=== PATIENT | female | born 1970 | race Caucasian/White ===

== ENCOUNTER 2017-02-22 08:57 | Outpatient (CLI) | payer BC ==
--- NOTE | 2017-02-22 13:17 | XRAY Report ---
DATE OF SERVICE: 02/22/2017 EXAM: THREE VIEW LEFT KNEE 02/22/2017 CLINICAL INDICATION: Pain. FINDINGS: AP, lateral, sunrise views of the left knee demonstrate no evidence of fracture or disloca tion. The joint spaces are preserved. No radiopaque foreign body is seen in the soft tissues. IMPRESSION: NORMAL LEFT KNEE. TD: 02/22/2017 13:47
== END 2017-02-22 08:58 | disposition home or self-care (01) ==
LOC: DI.S 08:57
PROVIDERS: ATTEND Physician Assistant
DX: M25.562 Pain in left knee (principal)

== ENCOUNTER 2017-12-25 04:20 | Emergency (ER) | payer BC ==
[2017-12-25] MEDS ORDERED: SODIUM CHLORIDE 0.9% 1,000 ML IV ONE (04:41)
[2017-12-25] MEDS ORDERED: ONDANSETRON ODT 4 MG TABLET TL STA (04:41)
--- NOTE | 2017-12-25 04:44 | ED Physician Documentation ---
PD HPI NVD - Stated complaint Stated Complaint: VOMITING,ABDOMINAL PAIN - Chief complaint Chief Complaint: Abd Pain - History obtained from History obtained from: Patient, Family - History of Present Illness Timing - onset: Enter time (0), Last night Timing - duration: Hours Timing - details: Abrupt onset, Still present Associated symptoms: Abdominal pain Contributing factors: Bad food (had potato salad at 4pm) Improved by: Vomiting Similar symptoms before: Has not had sx before Recently seen: Not recently seen - Additonal information Additional information: Previously well 47-year-old female has developed acute epigastric pain and vomiting beginning about 2199 last night. She states that she last ate potato salad about 4 PM and was well in between that time. She states this is never happened to her previously and she denies any use of alcohol and she states that she has not used ibuprofen or Aleve for more than 1 month. No one else ate the same thing that she did. Review of Systems Constitutional: denies: Fever Eyes: denies: Decreased vision Ears: denies: Ear pain Nose: denies: Congestion Throat: denies: Sore throat Cardiac: denies: Chest pain / pressure, Palpitations Respiratory: denies: Dyspnea, Cough GI: reports: Abdominal Pain, Nausea, Vomiting : denies: Dysuria, Frequency PD PAST MEDICAL HISTORY - Present Medications Home Medications: Ambulatory Orders Medication Instructions Recorded Confirmed Promethazine [Phenergan] 25 - 50 mg PO Q6H PRN #10 tab 12/25/17 - Allergies Allergies/Adverse Reactions: Allergies Allergy/AdvReac Type Severity Reaction Status Date / Time Sulfa (Sulfonamide Allergy Hives Verified 12/25/17 04:32 Antibiotics) PD ED PE NORMAL - Vitals Vital signs reviewed: Yes - General General: Alert and oriented X 3, Well developed/nourished, Other (47 y/o female appears very uncomfortable ) - HEENT HEENT: Atraumatic, PERRL, EOMI - Neck Neck: Supple, no meningeal sign, No bony TTP - Cardiac Cardiac: RRR, No murmur - Respiratory Respiratory: No respiratory distress, Clear bilaterally - Abdomen Abdomen: Soft, Other (epigastric tenderness is present without garding or rebound tenderness. 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, No motor deficit, No sensory deficit, Normal speech Eye Opening: Spontaneous Motor: Obeys Commands Verbal: Oriented GCS Score: 15 - Psych Psych: Normal mood, Normal affect Results - Vitals Vitals: Vital Signs - 24 hr 12/25/17 12/25/17 12/25/17 04:25 06:34 07:09 Temperature 35.9 C L 35.9 C L Heart Rate 86 64 Respiratory 26 H 16 Rate Blood Pressure 125/74 120/74 O2 Saturation 99 99 Oxygen O2 Source Room air - Labs Labs: Laboratory Tests 12/25/17 12/25/17 12/25/17 04:49 04:49 04:49 WBC 15.5 H RBC 4.19 L Hgb 13.5 Hct 40.2 MCV 95.9 MCH 32.3 H MCHC 33.7 RDW 12.8 Plt Count 362 MPV 7.3 L Neut # (Auto) 14.3 H Lymph # (Auto) 0.5 L [place] # (Auto) 0.6 Eos # (Auto) 0.0 Baso # (Auto) 0.1 Absolute Nucleated RBC 0.01 Nucleated RBC % 0.1 Sodium 137 Potassium 3.4 L Chloride 102 Carbon Dioxide 19 L Anion Gap 16.0 H BUN 15 Creatinine 0.9 Estimated GFR (MDRD) 68 L Glucose 150 H Calcium 9.9 Total Bilirubin 0.7 AST 23 ALT 17 Alkaline Phosphatase 110 Troponin I < 0.04 Total Protein 8.1 Albumin 4.6 Globulin 3.5 Albumin/Globulin Ratio 1.3 Lipase 23 Urine Color Urine Clarity Urine pH Ur Specific [place] Urine Protein Urine Glucose (UA) Urine Ketones Urine Occult Blood Urine Nitrite Urine Bilirubin Urine Urobilinogen Ur Leukocyte Esterase Urine RBC Urine WBC Ur Squamous Epith Cells Urine Bacteria Ur Microscopic Review Urine Culture Comments Urine HCG, Qual 12/25/17 12/25/17 05:41 05:41 WBC RBC Hgb Hct MCV MCH MCHC RDW Plt Count MPV Neut # (Auto) Lymph # (Auto) [place] # (Auto) Eos # (Auto) Baso # (Auto) Absolute Nucleated RBC Nucleated RBC % Sodium Potassium Chloride Carbon Dioxide Anion Gap BUN Creatinine Estimated GFR (MDRD) Glucose Calcium Total Bilirubin AST ALT Alkaline Phosphatase Troponin I Total Protein Albumin Globulin Albumin/Globulin Ratio Lipase Urine Color YELLOW Urine Clarity HAZY Urine pH 8.5 H Ur Specific [place] 1.020 1.020 Urine Protein NEGATIVE Urine Glucose (UA) NEGATIVE Urine Ketones >=80 H Urine Occult Blood LARGE H Urine Nitrite NEGATIVE Urine Bilirubin NEGATIVE Urine Urobilinogen 0.2 (NORMAL) Ur Leukocyte Esterase SMALL H Urine RBC 6-10 H Urine WBC 6-10 H Ur Squamous Epith Cells MOD Squamous H Urine Bacteria Moderate H Ur Microscopic Review INDICATED Urine Culture Comments NOT INDICATED Urine HCG, Qual NEGATIVE PD MEDICAL DECISION MAKING - ED course Complexity details: reviewed old records, reviewed results, re-evaluated patient, considered differential, d/w patient, d/w family ED course: 47-year-old female with acute nausea and vomiting is administered intravenous saline and Zofran does not have much improvement with use of Zofran is administered Phenergan intravenously. She feels improved at the time of discharge. I suspect food poisoning the most likely explanation. Departure - Departure Disposition: 01 Home, Self Care Clinical Impression: Gastroenteritis Instructions: ED Gastroenteritis Vs Food Poison Follow-Up: Chika Llamas PA [Primary Care Provider] - Prescriptions: Promethazine [Phenergan] 25 - 50 mg PO Q6H PRN #10 tab PRN Reason: Nausea / Vomiting Discharge Date/Time: 12/25/17 07:15
[2017-12-25] MEDS ORDERED: ONDANSETRON 4 MG/2 ML VIAL IVP STA (04:59)
[2017-12-25 05:02] LABS: BASOPHILS # (AUTO) 0.1 10^3/uL (0.0-0.1); BASOPHILS % (AUTO) 0.6 %; HGB - HEMOGLOBIN 13.5 g/dL (12.0-16.0); LYMPHOCYTES # (AUTO) 0.5 10^3/uL (1.5-3.5); LYMPHOCYTES % (AUTO) 3.4 %; MEAN CORPUSCULAR HEMOGLOBIN 32.3 pg (27.0-31.0); MEAN CORPUSCULAR HGB CONC 33.7 g/dL (32.0-36.0); MEAN CORPUSCULAR VOLUME 95.9 fL (81.0-99.0); MEAN PLATELET VOLUME 7.3 fL (7.9-10.8); MONOCYTES # (AUTO) 0.6 10^3/uL (0.0-1.0); MONOCYTES % (AUTO) 4.1 %; NEUTROPHILS # (AUTO) 14.3 10^3/uL (1.5-6.6); NEUTROPHILS % (AUTO) 91.9 %; PLT - PLATELET COUNT 362 10^3/uL (130-450); RED BLOOD COUNT 4.19 10^6/uL (4.20-5.40); RED CELL DISTRIBUTION WIDTH 12.8 % (12.0-15.0); WHITE BLOOD COUNT 15.5 x10^3/uL (4.8-10.8)
[2017-12-25 05:14] LABS: ALBUMIN 4.6 g/dL (3.2-5.5); ALBUMIN/GLOBULIN RATIO 1.3 (1.0-2.2); BILIRUBIN,TOTAL 0.7 mg/dL (0.2-1.0); CALCIUM 9.9 mg/dL (8.5-10.3); CREATININE 0.9 mg/dL (0.4-1.0); TOTAL PROTEIN 8.1 g/dL (6.7-8.2)
[2017-12-25 05:50] LABS: BILIRUBIN,URINE NEGATIVE (NEGATIVE); GLUCOSE, URINE (UA) NEGATIVE (NEGATIVE); KETONES,URINE (UA) >=80 mg/dL (NEGATIVE); LEUKOCYTE ESTERASE, URINE SMALL (NEGATIVE); NITRITE,URINE NEGATIVE (NEGATIVE); OCCULT BLOOD,URINE LARGE (NEGATIVE); PH,URINE 8.5 PH (5.0-7.5); PROTEIN,URINE NEGATIVE (NEGATIVE); UROBILINOGEN,URINE 0.2 (NORMAL) E.U./dL (NORMAL)
[2017-12-25] MEDS ORDERED: PROMETHAZINE INJ 25 MG in SODIUM CHLORIDE 0.9% 50 ML IV STA (05:50)
[2017-12-25 06:03] LABS: CLARITY,URINE HAZY (CLEAR)
[2017-12-25 06:04] LABS: HCG UR QUAL NEGATIVE
[2017-12-25 06:05] LABS: BACTERIA,URINE Moderate /HPF (None Seen); SQUAMOUS EPITHELIAL CELL,UR MOD Squamous (<= Few)
[2017-12-25 06:34] VITALS: BP 120/74
== END 2017-12-25 07:15 | disposition home or self-care (01) ==
LOC: ED 04:20
DX: K52.9 Noninfective gastroenteritis and colitis, unspecified (principal); R11.2 Nausea with vomiting, unspecified
CPT/HCPCS: 36415; 80053; 81001; 81025; 83690; 84484; 85025; 96365; 96375; 99283; J7040; Q0162; 81003; 87086

== ENCOUNTER 2018-09-12 08:39 | Outpatient (CLI) | payer BC ==
--- NOTE | 2018-09-12 11:24 | XRAY Report ---
Reason: PAIN IN RIGHT ELBOW Procedure Date: 09/12/2018 Accession Number: [id number] / [id number] Procedure: XR - Elbow 2 View RT CPT Code: FULL RESULT: EXAM: RIGHT ELBOW RADIOGRAPHY EXAM DATE: 09/12/2018 09:13 AM. CLINICAL HISTORY: PAIN IN RIGHT ELBOW. COMPARISON: None. TECHNIQUE: 2 views. FINDINGS: Bones: Normal. No fractures or bone lesions. Joints: Normal. No effusion. No subluxation. Soft Tissues: Normal. No soft tissue swelling. IMPRESSION: Normal 2 view elbow radiography. If there is clinical concern for fracture 3 views are recommended [facility]
== END 2018-09-12 08:40 | disposition home or self-care (01) ==
LOC: DI 08:39
PROVIDERS: ATTEND Physician Assistant
DX: M25.521 Pain in right elbow (principal)